=== PATIENT | female | born 1985 | race Two or more races ===

== ENCOUNTER → 2024-11-20 | Day surgery (SDC) | payer MEDICAID ==
[2024-11-18 09:41] LABS: Hematocrit 41.6 % (36.0-46.0); Hemoglobin 14.0 g/dL (12.2-16.2); Mean Corpuscular Hemoglobin 29.6 pg (28.0-32.0); Mean Corpuscular Volume 87.8 fL (80.0-100.0); Nucleated Red Blood Cells % 0.0 %
[2024-11-18 09:53] LABS: Urine Protein, UAD TRACE (Negative)
[2024-11-18 10:09] LABS: INR 1.08 (0.9-1.15); Partial Thromboplastin Time 26.3 SEC (24.5-34.5); Prothrombin Time 11.4 sec (9.3-11.8)
[2024-11-18 10:35] LABS: Alkaline Phosphatase 72 U/L (46-116); Anion Gap 8 (5-15); BUN/Creatinine Ratio 12.9 (10.0-20.0); Blood Urea Nitrogen 9 mg/dL (9-23); Calcium 9.4 mg/dL (8.7-10.4); Carbon Dioxide 30 mmol/L (20-31); Chloride 105 mmol/L (98-107); Sodium 143 mmol/L (136-145); Total Protein 7.2 g/dL (5.7-8.2)
[2024-11-18 10:36] LABS: Albumin 4.6 g/dL (3.2-4.8); Bilirubin, Total 0.5 mg/dL (0.2-1.0)
[2024-11-18 10:39] LABS: Alanine Aminotransferase 58 U/L (7-40); Glucose 108 mg/dL (74-106); Potassium 3.2 mmol/L (3.5-5.1)
[~2024-11-20] VITALS: Ht 167.6 cm; Wt 106.6 kg
[~2024-11-20] MED LIST: ATOR-507 PO; BUPR8MIS SL; CHOL200064 PO; DICY10CA PO; DULO60CA41 PO; GABA-2171 PO; HYDR25TA4 PO; LEVE100012 PO; LISI20TA56 PO; MECL12.586 PO; OXYB5TAB14 PO; PANT40TA2 PO
== END | disposition home or self-care (01) ==
LOC: GI 07:56
PROVIDERS: ATTEND Internal Medicine Gastroenterology
DX: R11.2 Nausea with vomiting, unspecified (principal); Z53.8 Procedure and treatment not carried out for other reasons; R12 Heartburn; I10 Essential (primary) hypertension; G35 Multiple sclerosis; M79.7 Fibromyalgia; M72.2 Plantar fascial fibromatosis; K21.9 Gastro-esophageal reflux disease without esophagitis; F17.210 Nicotine dependence, cigarettes, uncomplicated; Z79.899 Other long term (current) drug therapy; Z90.49 Acquired absence of other specified parts of digestive tract; Z98.890 Other specified postprocedural states; Z88.8 Allergy status to other drugs, medicaments and biological substances
CPT/HCPCS: 36415; 80053; 81001; 81025; 85025; 85610; 85730